=== PATIENT | male | born 1970 | race Caucasian/White ===

== ENCOUNTER 2020-04-07 16:27 | Emergency (ER) | payer BC ==
[~2020-04-07] VITALS: Ht 182.9 cm; Wt 99.8 kg
[2020-04-07 16:46] LABS: URINE BILIRUBIN NEGATIVE (Negative); URINE BLOOD NEGATIVE (Negative); URINE CLARITY CLEAR; URINE COLOR YELLOW; URINE GLUCOSE-RANDOM* NEGATIVE (Negative); URINE KETONES TRACE (Negative); URINE LEUKOCYTES-REFLEX NEGATIVE (Negative); URINE NITRITE-REFLEX NEGATIVE (Negative); URINE PROTEIN (DIPSTICK) NEGATIVE (Negative); URINE SPECIFIC GRAVITY >= 1.030 (1.005-1.035); URINE UROBILINOGEN 0.2 E.U./dl (0.2-1.0)
[2020-04-07 17:13] LABS: ABSOLUTE NEUTROPHILS 3.7 thou/uL (1.4-8.2); BASOPHILS 0.4 % (0.0-2.0); EOSINOPHILS 1.3 % (0.0-3.0); HEMATOCRIT 45.8 % (42.0-52.0); HEMOGLOBIN 15.6 gm/dL (14.0-18.0); LYMPHOCYTES 29.3 % (24.0-44.0); MCH 31.7 pg (26.0-34.0); MCHC 34.1 g/dL (28.0-37.0); MONOCYTES 8.2 % (1.0-8.0); PLATELET COUNT 252 thou/uL (150-400); POLYS 60.8 % (36.0-66.0); RBC 4.92 mil/uL (4.50-6.00); RDW 12.4 % (10.5-14.5); WBC 6.2 thou/uL (4.0-11.0)
[2020-04-07 17:22] LABS: CALCIUM 8.9 mg/dL (8.5-10.1); CREATININE 1.1 mg/dL (0.7-1.3); POTASSIUM 3.9 mmol/L (3.5-5.1)
[2020-04-07 17:25] LABS: ALBUMIN 4.6 g/dL (3.4-5.0); TOTAL BILIRUBIN 0.8 mg/dL (0.2-1.0); TOTAL PROTEIN 7.6 g/dL (6.4-8.2)
[2020-04-07 18:48] VITALS: BP 131/83
[2020-04-07] MEDS ORDERED: AUGMENTIN 875-1 EACH PO (18:48)
== END 2020-04-07 18:48 | disposition home or self-care (01) ==
LOC: ER 16:27
PROVIDERS: Emergency Medicine
DX: K57.32 Diverticulitis of large intestine without perforation or abscess without bleeding (principal); K59.00 Constipation, unspecified